=== PATIENT | female | born 1990 | race Caucasian/White ===

== ENCOUNTER 2021-12-18 08:08 | Emergency (ER) | payer BC ==
[2021-12-18] MEDS ORDERED: Ampicillin/Sulbactam Na 3 GM in Sodium Chloride 0.9% 100 ML IV ONE (09:58)
== END 2021-12-18 12:15 | disposition still patient (30) ==
LOC: MW.ED 08:08
DX: K04.7 Periapical abscess without sinus (principal)
CPT/HCPCS: 96365; 99282; J0295; 99283

== ENCOUNTER 2021-12-18 12:15 | Inpatient (IN) | payer BC ==
[2021-12-18] MEDS ORDERED: Sodium Chloride 0.9% 2.5 ML Syringe FLUSH PRN ×2 (13:33→22:12)
[2021-12-18] MEDS ORDERED: Sodium Chloride 0.9% 10 ML Syringe FLUSH PRN ×2 (13:33→22:12)
[2021-12-18] MEDS ORDERED: Water For Irrigation,Sterile 1,000 ML Container IRR PRN (13:33)
[2021-12-18] MEDS ORDERED: Lidocaine 1% 50 ML MDV INJECT PRN (13:33)
[2021-12-18] MEDS ORDERED: Methylergonovine 0.2 MG/1 ML Amp IM PRN (13:33)
[2021-12-18] MEDS ORDERED: Butorphanol 1 MG/ML SDV IVPUSH PRN (13:33)
[2021-12-18] MEDS ORDERED: Carboprost Tromethamine 250 MCG/1 ML Amp IM PRN (13:33)
[2021-12-18] MEDS ORDERED: Misoprostol 200 MCG Tab PO PRN (13:33)
[2021-12-18] MEDS ORDERED: Tranexamic Acid 1,000 MG in Sodium Chloride 0.9% 100 ML IV PRN (13:33)
[2021-12-18] MEDS ORDERED: Sodium Chloride 0.9% 20 ML SDV IV PRN ×2 (13:33→22:12)
[2021-12-18] MEDS ORDERED: Ampicillin 2 GM in Sodium Chloride 0.9% 100 ML IV ONE (13:45)
[2021-12-18] MEDS ORDERED: Oxytocin/0.9 % Sodium Chloride 30 UNIT/500 ML BAG IV SCH (13:45)
[2021-12-18] MEDS ORDERED: Terbutaline 1 MG/ML SDV SUBCUT PRN (14:03)
[2021-12-18] MEDS ORDERED: Misoprostol 25 MCG (1/4 of 100 MCG) Tab VAG PRN ×2 (14:03)
[2021-12-18] MEDS: Lactated Ringers 1,000 ML IV SCH ×2 (14:20→23:18)
[2021-12-18 17:14] LABS: BLOOD UREA NITROGEN,BUN 13 mg/dL (7.0-18.0); CARBON DIOXIDE,CO2 18.3 mmol/L (21.0-32.0); CHLORIDE,CL 103 mmol/L (98-107); GLUCOSE RANDOM 95 mg/dL (74-106); POTASSIUM,K 4.2 mmol/L (3.5-5.1); SODIUM,NA 138 mmol/L (136-145)
[2021-12-18] MEDS: Ampicillin 1 GM in Sodium Chloride 0.9% 100 ML IV SCH ×2 (18:23→22:47)
[2021-12-18] MEDS ORDERED: Labetalol 100 MG/20 ML MDV IVPUSH PRN (21:50)
[2021-12-18] MEDS ORDERED: Calcium Gluconate 10% 1 GM/10 ML SDV IV PRN (22:12)
[2021-12-18] MEDS ORDERED: Magnesium Sulfate/Water 4 GM in Premix Bag 1 BAG IV ONE (22:12)
[2021-12-18] MEDS ORDERED: Magnesium Sulfate/Water 100 ML ONE (22:13)
[2021-12-18] MEDS: Magnesium Sulfate/Water 20 GM/500 ML BAG IV SCH (22:55)
[2021-12-18] MEDS ORDERED: Ropivacaine 100 ML ONE (23:27)
[2021-12-18] MEDS ORDERED: fentaNYL 100 MCG/2 ML SDV ONE (23:27)
[2021-12-19] MEDS ORDERED: ePHEDrine 50 MG/ML SDV IVPUSH PRN (00:18)
[2021-12-19] MEDS ORDERED: Oxytocin/0.9 % Sodium Chloride 30 UNIT/500 ML BAG IV SCH (02:45)
[2021-12-19] MEDS: Ampicillin 1 GM in Sodium Chloride 0.9% 100 ML IV SCH (03:06)
[2021-12-19] MEDS ORDERED: Sodium Chloride 0.9% 100 ML ONE (03:07)
[2021-12-19] MEDS ORDERED: Witch Hazel Medicated Pads 40/Jar TOP PRN (06:47)
[2021-12-19] MEDS ORDERED: Misoprostol 200 MCG Tab RECTAL PRN (06:47)
[2021-12-19] MEDS ORDERED: Acetaminophen 500 MG Tab PO PRN (06:47)
[2021-12-19] MEDS ORDERED: Lanolin 100% Cream 7 GM Tube TOP PRN (06:47)
[2021-12-19] MEDS ORDERED: Tranexamic Acid 1,000 MG in Sodium Chloride 0.9% 100 ML IV PRN (06:47)
[2021-12-19] MEDS ORDERED: Benzocaine/Menthol 20%-0.5% Spray 78 GM Cannister TOP PRN (06:47)
[2021-12-19] MEDS ORDERED: Ibuprofen 400 MG Tab PO PRN (06:47)
[2021-12-19] MEDS ORDERED: Bisacodyl 10 MG Supp RECTAL PRN (06:47)
[2021-12-19] MEDS ORDERED: Docusate Sodium 100 MG Cap PO PRN (06:47)
[2021-12-19] MEDS: Magnesium Sulfate/Water 20 GM/500 ML BAG IV SCH ×2 (09:01→18:34)
[2021-12-19] MEDS: Acetaminophen 500 MG Tab PO PRN ×2 (09:22→16:04)
[2021-12-19] MEDS: Ibuprofen 800 MG Tab PO PRN (14:21)
[2021-12-20] MEDS: Magnesium Sulfate/Water 20 GM/500 ML BAG IV SCH (04:39)
[2021-12-20] MEDS: Ibuprofen 800 MG Tab PO PRN (06:33)
== END 2021-12-21 22:30 | disposition home or self-care (01) | DRG 560 ==
LOC: MW.OBCHECK 12:15 → MW.OB 12:15 → MW.OBCHECK 13:33 → MW.OB 12-19 00:53 → OBSVTOIN 12-19 06:19 → MW.OB 12-19 10:41
PROVIDERS: ADMIT Obstetrics & Gynecology; ATTEND Obstetrics & Gynecology
PROC: 10E0XZZ Delivery of Products of Conception, External Approach (ICD-10-PCS; principal; 2021-12-19)
PROC: 3E0P7VZ Introduction of Hormone into Female Reproductive, Via Natural or Artificial Opening (ICD-10-PCS; 2021-12-19)
PROC: 3E033VJ Introduction of Other Hormone into Peripheral Vein, Percutaneous Approach (ICD-10-PCS; 2021-12-19)
PROC: 0HQ9XZZ Repair Perineum Skin, External Approach (ICD-10-PCS; 2021-12-19)
PROC: 3E0R3BZ Introduction of Anesthetic Agent into Spinal Canal, Percutaneous Approach (ICD-10-PCS; 2021-12-19)
PROC: 00HU33Z Insertion of Infusion Device into Spinal Canal, Percutaneous Approach (ICD-10-PCS; 2021-12-19)
PROC: 10H07YZ Insertion of Other Device into Products of Conception, Via Natural or Artificial Opening (ICD-10-PCS; 2021-12-19)
DX: O14.14 Severe pre-eclampsia complicating childbirth (principal); Z37.0 Single live birth; Z20.822 Contact with and (suspected) exposure to COVID-19; O70.0 First degree perineal laceration during delivery; Z3A.39 39 weeks gestation of pregnancy; Z86.16 Personal history of COVID-19
CPT/HCPCS: 01967; 36415; 51702; 59025; 59200; 59409; 80053; 81003; 82803; 83615; 83735; 84550; 85014; 85018; 85027; 86592; 86850; 86900; 86901; A9270-GY; J0290; J0595; J2370; J2590; J2795; J3010; J3475; J7120; U0002